=== PATIENT | male | born 1940 | race Caucasian/White ===

== ENCOUNTER 2021-01-19 12:03 | Outpatient (REF) | payer MEDICARE, SELFPAY ==
[2021-01-19 14:02] LABS: C Reactive Protein 0.11 mg/dL (< or = 0.50)
[2021-01-19 14:20] LABS: Erythrocyte Sedimentation Rate 7 MM/HR (0-15)
== END 2021-01-19 12:04 | disposition home or self-care (01) ==
LOC: HO.10HDL 12:03
PROVIDERS: Visit Provider Specialist
DX: H53.2 Diplopia (principal)
CPT/HCPCS: 36415; 85652; 86140